=== PATIENT | female | born 2000 | race Two or more races ===

== ENCOUNTER 2022-08-27 12:30 | Inpatient (IN) | payer OTHER ==
[~2022-08-27] VITALS: Ht 175.3 cm; Wt 94.8 kg
[2022-09-05] MEDS ORDERED: PRENATAL + DHA1 EACH PO (05:38)
== END 2022-09-07 10:13 | disposition home or self-care (01) | DRG 807 ==
LOC: LDR 09-05 05:22 → OB/GYN 09-05 13:59
PROVIDERS: ADMIT Obstetrics & Gynecology; ATTEND Obstetrics & Gynecology
PROC: 10E0XZZ Delivery of Products of Conception, External Approach (ICD-10-PCS; principal; 2022-09-05)
PROC: 0W8NXZZ Division of Female Perineum, External Approach (ICD-10-PCS; 2022-09-05)
PROC: 4A1HXCZ Monitoring of Products of Conception, Cardiac Rate, External Approach (ICD-10-PCS; 2022-09-05)
DX: O80 Encounter for full-term uncomplicated delivery (principal); Z37.0 Single live birth; Z3A.38 38 weeks gestation of pregnancy; Z20.822 Contact with and (suspected) exposure to COVID-19

== ENCOUNTER 2022-08-27 16:36 | Outpatient (CLI) | payer OTHER | END 2022-08-27 17:54 | disposition home or self-care (01) | LOC: NST 16:36 | PROVIDERS: ATTEND Obstetrics & Gynecology | DX: Z48.3 Aftercare following surgery for neoplasm (principal) ==

== ENCOUNTER 2022-09-03 15:22 | Outpatient (CLI) | payer OTHER | END 2022-09-03 16:18 | disposition home or self-care (01) | LOC: NST 15:22 | PROVIDERS: ATTEND Obstetrics & Gynecology Gynecology | DX: Z34.83 Encounter for supervision of other normal pregnancy, third trimester (principal) ==